=== PATIENT | female | born 1970 | race Caucasian/White ===

== ENCOUNTER 2025-02-06 14:51 | Emergency (ER) | payer BC, SELFPAY ==
[2025-02-06] VITALS (8 sets, daily range): BP systolic 126–185; BP diastolic 82–140; BMI 39.5
[2025-02-06 15:08] LABS: Glucose - Point of Care 130 mg/dl (70-99)
[2025-02-06 15:38] LABS: % Basophils 0.6 % (0-2); % Eosinophils 1.6 % (0-6); % Immature Granulocytes 0.3 % (0-0.5); % Monocytes 7.6 % (1.7-9.3); % Neutrophils 69.9 % (42.2-75.2); Absolute Basophils 0.1 10^3/uL (0-0.2); Absolute Eosinophils 0.2 10^3/uL (0-0.7); Absolute Monocytes 0.8 10^3/uL (0.1-0.6); Absolute Neutrophils 7.1 10^3/uL (1.4-6.5); Hematocrit 44.2 % (37.0-47.0); Hemoglobin 14.9 g/dL (12.0-16.0); Mean Corp Hgb Conc. 33.7 g/dL (33.0-37.0); Mean Corpuscular Hgb 30.5 pg (27.0-31.0); Mean Corpuscular Volume 90.6 fL (81.0-99.0); Mean Platelet Volume 9.4 fL (7.4-10.4); Nucleated Red Blood Cells % 0 %; Platelet Count 302 10^3/uL (130-400); Red Blood Cell Count 4.88 10^6/uL (4.20-5.40); Red Cell Dist. Width 13.2 % (11.5-14.5); White Blood Cell Count 10.2 10^3/uL (4.8-10.8)
[2025-02-06 15:52] LABS: ALT (SGPT) 27 U/L (0-35); AST (SGOT) 22 U/L (14-36); Albumin 4.8 g/dl (3.5-5.0); Alkaline Phosphatase 88 U/L (38-126); Blood Urea Nitrogen 16 mg/dl (7-17); Calcium 9.9 mg/dl (8.4-10.2); Carbon Dioxide 23 mmol/L (22-30); Chloride 105 mmol/L (98-107); Glucose 143 mg/dl (70-99); Potassium 4.5 mmol/L (3.5-5.1); Sodium 138 mmol/L (135-145); Total Bilirubin 0.6 mg/dl (0.2-1.3); Total Protein 7.6 g/dl (6.3-8.2); eGFR > 60.00
[2025-02-06 16:30] LABS: Troponin I < 0.012 ng/ml
--- NOTE | 2025-02-06 16:47 | ED.GENMED ---
History of Present Illness
General
Chief Complaint: Headache
Source: patient
Exam Limitations: none
Time Seen by Provider: 02/06/25 16:41
Nursing documentation reviewed up to this point in time: agreed with
Past History
Past History
ED Past Medical History: Other (Cardiomyopathy)
ED Past Surgical History: Negative Bowel resection, Brain or Cardiac
Social History
Tobacco: Non-smoker
Personal:
Living: with family
Family History
Family History: Negative Early CAD
Course
Orders/Labs/Results
Orders:
Orders
02/06/25 14:54
EKG [Electrocardiogram (*1)] Urgent
Reason for Study: Chest Pain
EKG- Treatment ONCE
02/06/25 15:17
Complete Blood Count/With Diff Urgent
Comprehensive Metabolic Panel Urgent
02/06/25 15:18
Troponin I Urgent
02/06/25 16:45
CT Head W/wo Iv Contrast Urgent
Comment:
Reason For Exam: severe left head pain, vomiting.
HYDROmorphone [Dilaudid] 0.5 mg IV NOW STA
Ondansetron Injectable [Zofran] 4 mg IV NOW STA
02/06/25 16:46
NSS 1000mL Bolus over 1 hr 0.9% Sodium Chloride 1000 ml [Nss] 1,000 ml IV BOLUS
Abnormal Lab Results
02/06/25 02/06/25
15:06 15:17
Absolute Neuts (auto) 7.1 H 10^3/uL
(1.4-6.5)
Absolute Monos (auto) 0.8 H 10^3/uL
(0.1-0.6)
Lymphocytes % 20.0 L %
(20.5-51.1)
Creatinine 0.5 L mg/dL
(0.6-1.0)
Glucose 143 H mg/dl
(70-99)
POC Glucose 130 H mg/dl
(70-99)
02/06/25 15:17
02/06/25 15:17
Vital Signs
Initial and Last Documented VS:
Initial Vital Signs
Temp Pulse Resp BP Pulse Ox
97.6 F 71 18 171/104 98
02/06/25 15:03 02/06/25 15:03 02/06/25 15:03 02/06/25 15:03 02/06/25 15:03
Last Documented Vital Signs
Temp Pulse Resp BP Pulse Ox
98.1 F 66 18 135/96 98
02/06/25 15:04 02/06/25 16:23 02/06/25 16:23 02/06/25 16:23 02/06/25 16:23
ED Attending Note
-
Portions of this chart may have been created with voice recognition software.� Occasional wrong word or��sound alike� substitutions may have occurred due to the inherent limitations of voice recognition software.
Discharge Plan
Departure
Prescriptions:
No Action
ascorbic acid (vitamin C) [Vitamin C] 500 MG tablet
2 tab PO DAILY
Referrals:
NONE,* [Family Provider] -
Discharge Date and Time
Print Language: [id number]
[2025-02-06] MEDS: DILAUDID 0.5 MG IV (16:59)
[2025-02-06] MEDS: NSS 1000 IV (17:01)
[2025-02-06] MEDS: ZOFRAN 4 MG IV ×2 (17:01→18:26)
[2025-02-06] MEDS: ANTIVERT 25 MG PO (18:26)
== END 2025-02-06 20:53 | disposition home or self-care (01) ==
LOC: EMR 14:51
PROVIDERS: Student in an Organized Health Care Education/Training Program; EMERGENCY PHYSICIAN Emergency Medicine
DX: R51.9 Headache, unspecified (principal); R11.2 Nausea with vomiting, unspecified; R07.9 Chest pain, unspecified; I42.9 Cardiomyopathy, unspecified; Z88.0 Allergy status to penicillin; Z91.040 Latex allergy status
CPT/HCPCS: 99284; 96374; 96375; 96361; 96376; 70450; 80053; 82962; 84484; 85025; 93005